=== PATIENT | male | born 1965 | race Caucasian/White ===

== ENCOUNTER 2016-10-25 19:40 | Emergency (ER) | payer OTHER ==
[~2016-10-25] VITALS: Ht 182.9 cm; Wt 81.6 kg
[~2016-10-25 19:40] MED LIST: CITA-48 PO; KETO10 PO; XANA0.5T PO
[2016-10-25 19:50] VITALS: BP 177/91; PULSE 89; RESP 14; TEMP 98.6; O2SAT 99
[2016-10-25] MEDS ORDERED: [UNRECOGNIZED DRUG - OTHER] (20:05)
[2016-10-25] MEDS ORDERED: ALPR.5 PO (20:05)
[2016-10-25] MEDS ORDERED: BP Med (20:05)
[2016-10-25] MEDS ORDERED: CITA40TA4 PO (20:05)
[2016-10-25] MEDS ORDERED: CEPH-459 PO (20:53)
[2016-10-25] MEDS ORDERED: BACT800T5 PO (20:53)
--- NOTE | 2016-10-25 20:54 | PD ---
HPI Chief Complaint: Laceration/Skin Injury Time Seen by Provider: 20:30 Travel History International Travel<30 days: No Contact w/Intl Traveler<30days: No Traveled to known affect area: No History of Present Illness HPI 31-year-old male presents emergency department for evaluation of left lower extremity wound. He reports that he sustained the wound after jumping off a ladder and sustained an abrasion to the left medial aspect of the lower extremity. He reports he noticed that the wound became red and started spreading and lower extremity. He denies fever, chills, nausea, vomiting. He reports only mild pain at the site of the wound. There is no drainage. PFSH Past Medical History Medical History: Denies Significant Hx Anxiety: Yes Depression: Yes (PTSD) Heart Rhythm Problems: No Cardiac Catheterization: No Cardiovascular Problems: No High Cholesterol: No Congestive Heart Failure: No Diabetes: No Diminished Hearing: No Hypertension: No Musculoskeletal: Yes (HX MULTIPLE FX.) Psychiatric: Yes (PTSD) Immunizations Current: Yes Myocardial Infarction: No Influenza Vaccination: Yes ?: Not Past Surgical History Abdominal Aneurysm Repair: Yes (HERNIA X 2) Coronary Artery Bypass Graft: No Other Surgery: Yes (COMBAT WOUNDED VET. MULTIPLE SURGERIES AND FX.) Social History Alcohol Use: No Tobacco Use: Yes (2 cigars/day) Substance Use: No Allergies-Medications (Allergen,Severity, Reaction): Coded Allergies: No Known Allergies (Verified , 03/29/13) Reported Meds & Prescriptions Reported Meds & Active Scripts Active Reported [Seizure Med] [BP Med] Citalopram (Citalopram Hydrobromide) 40 Mg Tab 40 Mg PO DAILY Xanax (Alprazolam) 0.5 Mg Tab 0.5 Mg PO Q6H PRN Physical Exam Narrative GENERAL: Alert well-appearing male SKIN: 8 x 5 cm area of erythema with a central scab. There is no drainage. No lymphangitis. No fluctuance. HEAD: Atraumatic. Normocephalic. EYES: Pupils equal and round. No scleral icterus. No injection or drainage. ENT: No nasal bleeding or discharge. Mucous membranes pink and moist. NECK: Trachea midline. No JVD. CARDIOVASCULAR: Regular rate and rhythm. No murmur appreciated. RESPIRATORY: No accessory muscle use. Clear to auscultation. Breath sounds equal bilaterally. GASTROINTESTINAL: Abdomen soft, non-tender, nondistended. Hepatic and splenic margins not palpable. MUSCULOSKELETAL: No obvious deformities. No clubbing. No cyanosis. No edema. 8 x 5 cm area of cellulitis surrounding a central scab NEUROLOGICAL: Awake and alert. No obvious cranial nerve deficits. Motor grossly within normal limits. Normal speech. PSYCHIATRIC: Appropriate mood and affect; insight and judgment normal. Data Data Last Documented VS Vital Signs Date Time Temp Pulse Resp B/P Pulse Ox O2 Delivery O2 Flow Rate FiO2 10/25/16 19:50 98.6 89 14 177/91 99 MDM Medical Decision Making Medical Screen Exam Complete: Yes Emergency Medical Condition: Yes Medical Record Reviewed: Yes Differential Diagnosis Wound infection, cellulitis, abscess Narrative Course 51-year-old male presents to the emergency department for evaluation of an infected wound. He reports he sustained abrasions to left lower extremity 10 days ago while jumping off a letter. He reports that about 4 days ago he noticed the area became red. He denies fever, chills, nausea, vomiting. On exam the patient has cellulitis surrounding the abrasion. Patient will be put on Bactrim and Keflex. Diagnosis Primary Impression: Cellulitis Qualified Code: L03.90 - Cellulitis, unspecified cellulitis site Referrals: Primary Care Physician Scripts Cephalexin (Keflex)250 Mg Dks220 Mg PO Q6H #40 CAP Ref 0 Prov:Pam Willett 10/25/16 Sulfamethoxazole-Trimethoprim (Bactrim DS)800-160 Mg Tab1 Tab PO BID #20 TAB Prov:Pam Willett 10/25/16 Disposition: 01 DISCHARGE HOME Condition: Stable Pam Willett October 25, 2016 20:53
== END 2016-10-25 21:22 | disposition home or self-care (01) ==
LOC: PHEFT 19:40
DX: L03.116 Cellulitis of left lower limb (principal); F43.10 Post-traumatic stress disorder, unspecified; F41.9 Anxiety disorder, unspecified; F17.290 Nicotine dependence, other tobacco product, uncomplicated; Z79.899 Other long term (current) drug therapy
CPT/HCPCS: 99284

== ENCOUNTER 2017-12-08 15:39 | Observation (INO) ==
[2017-12-08 16:37] LABS: Baso # (Auto) 0.1 th/mm3 (0.0-0.2); Baso % (Auto) 0.7 % (0.0-2.0); Eos # (Auto) 0.1 th/mm3 (0.0-0.4); Eos % (Auto) 1.2 % (0.0-4.0); Hematocrit 42.3 % (39.0-51.0); Hemoglobin 14.5 gm/dL (13.0-17.0); Lymph # (Auto) 1.8 th/mm3 (1.0-4.8); Lymph % (Auto) 20.1 % (9.0-44.0); Mean Corpuscular HGB Conc 34.2 % (32.0-36.0); Mean Corpuscular Hemoglobin 31.1 pg (27.0-34.0); Mean Platelet Volume 9.4 fL (7.0-11.0); Mono # (Auto) 0.8 th/mm3 (0.0-0.9); Neut # (Auto) 6.3 th/mm3 (1.8-7.7); Platelet Count 206 th/mm3 (150-450); Red Blood Count 4.66 mil/mm3 (4.50-5.90); Red Cell Distribution Width 13.7 % (11.6-17.2); White Blood Count 9.1 th/mm3 (4.0-11.0)
[2017-12-08 16:48] LABS: Activated Partial Thrombo Time 24.4 sec (24.3-30.1); Prothrombin Time 10.6 sec (9.8-11.6)
--- NOTE | 2017-12-08 16:52 | ED ---
HPI General Chief Complaint: Chest Pain Stated Complaint: Chest pain Time Seen by Provider: 12/08/17 15:56 Source: patient and EMS Mode of arrival: ambulatory Limitations: no limitations History of Present Illness HPI narrative: Patient is a 52-year-old male presenting to the emergency department for evaluation of chest pain. Symptoms started abruptly prior to arrival. Patient arrived via EMS. MD complaint: chest pain Complete Quality Measures for STEMI Alert Patients STEMI Alert: No Onset (ago): hour(s) Duration: now resolved Onset: during rest Pain location: substernal Severity: moderate Severity scale (1-10): 5 Quality: tightness Pain radiation: none Relieving factors: nitroglycerin Exacerbating factors: nothing Associated symptoms: other (Warm flushed feeling) Treatments prior to arrival chest pain: aspirin and nitroglycerin Related Data Home Medications Medication Instructions Recorded Confirmed No Known Home Medications 12/08/17 12/08/17 Allergies Allergy/AdvReac Type Severity Reaction Status Date / Time No Known Allergies Allergy Verified 12/08/17 15:47 Review of Systems Except as stated in HPI: all other systems reviewed are negative Cardiovascular Reports chest pain, Denies syncope, Reports lightheadedness, Denies radiating jaw, neck or arm pain and Denies palpitations Gastrointestinal Reports system reviewed and no additional complaints, except as docu Musculoskeletal Reports system reviewed and no additional complaints, except as docu Neurologic Reports headache(s) Psychiatric Reports anxiety PMFSH History History Provided By: Patient and Family Member Medical History Medical History Angioedema (Acute) Anxiety (Acute) PTSD (post-traumatic stress disorder) (Acute) Seizures (Acute) Surgical History Surgical History History of hernia repair (Acute) History of sinus surgery (Acute) Social History Social History Substance History: Past History Second Hand Smoke Exposure: No Smoking Status: Smoker, status unknown Tobacco Type: Cigarettes How Often Do You Have a Drink Containing Alcohol: Monthly or less Recent Travel in [place] within the Last 8 Weeks: No Recent Out of Country Travel within the Last 8 Weeks: No Substance Abuse Detail Marijuana: Substance Use Status: Active Substance Abuse Comment: pt states he uses medical marijuana to prevent seizures Immunization History Tetanus Immunization: >5 Years Hx Influenza Vaccine This Season: No Exam Narrative Exam Narrative: GENERAL: Well-developed, well-nourished, alert male. Resting comfortably in no acute distress. SKIN: Focused skin assessment warm/dry. HEAD: Atraumatic. Normocephalic. EYES: Pupils equal and round. No scleral icterus. No injection or drainage. ENT: No nasal bleeding or discharge. Mucous membranes pink and moist. NECK: Trachea midline. No JVD. CARDIOVASCULAR: Regular rate and rhythm. No murmur appreciated. RESPIRATORY: No accessory muscle use. Clear to auscultation. Breath sounds equal bilaterally. GASTROINTESTINAL: Abdomen soft, non-tender, nondistended. Hepatic and splenic margins not palpable. MUSCULOSKELETAL: No obvious deformities. No clubbing. No cyanosis. No edema. NEUROLOGICAL: Awake and alert. No obvious cranial nerve deficits. Motor grossly within normal limits. Normal speech. PSYCHIATRIC: Appropriate mood and affect; insight and judgment normal. Course Initial Documented Vital Signs Temperature 99.8 F H 12/08/17 15:48 Pulse Rate 81 12/08/17 15:48 Respiratory Rate 20 12/08/17 15:48 Blood Pressure 156/81 H 12/08/17 15:48 Pulse Oximetry 98 12/08/17 15:48 Last Documented Vital Signs Temperature 99 F 12/09/17 08:00 Pulse Rate 56 L 12/09/17 08:00 Respiratory Rate 18 12/09/17 08:00 Blood Pressure 119/69 12/09/17 08:00 Pulse Oximetry 96 12/09/17 08:00 Medical Decision Making AYANA Attestation AYANA supervised visit: Yes Attestation: 52-year-old male came to the emergency room with history of chest pain that started all of a sudden substernal and says that from there it sort of went over all over the body. But it scared the patient and his and call 911. Patient received aspirin on route. He has been seen by the nurse practitioner and I am supervising her. Patient is a smoker. He says he had a stress test done in 2006 or 2007 which at that time was within normal limits. Awaiting for blood test result. Patient should go to the chest pain center to be ruled out for ACS at the least if all the test results are within normal limit. I have explained this to the patient and the and they understand. MDM Narrative Medical decision making narrative: Patient presented for evaluation of chest pain. Chest pain was resolved after 2 nitroglycerin given by EMS. Patient's vital signs are stable. Labs imaging ordered and pending. Labs reviewed, no acute findings identified. Troponin is negative 1 set. Potassium is 3.2, oral replacement ordered. Patient was placed in the chest pain center. Chest pain orders placed. Patient and were advised on findings. Lab Data Result diagrams: 12/08/17 16:15 12/08/17 16:15 Lab Results 12/08/17 12/08/17 12/08/17 Range/Units 16:15 16:15 16:15 WBC 9.1 (4.0-11.0) th/mm3 RBC 4.66 (4.50-5.90) mil/mm3 Hgb 14.5 (13.0-17.0) gm/dL Hct 42.3 (39.0-51.0) % MCV 91.0 (80.0-100.0) fL MCH 31.1 (27.0-34.0) pg MCHC 34.2 (32.0-36.0) % RDW 13.7 (11.6-17.2) % Plt Count 206 (150-450) th/mm3 MPV 9.4 (7.0-11.0) fL Neut % (Auto) 69.0 (16.0-70.0) % Lymph % (Auto) 20.1 (9.0-44.0) % [place] % (Auto) 9.0 H (0.0-8.0) % Eos % (Auto) 1.2 (0.0-4.0) % Baso % (Auto) 0.7 (0.0-2.0) % Neut # (Auto) 6.3 (1.8-7.7) th/mm3 Lymph # (Auto) 1.8 (1.0-4.8) th/mm3 [place] # (Auto) 0.8 (0.0-0.9) th/mm3 Eos # (Auto) 0.1 (0.0-0.4) th/mm3 Baso # (Auto) 0.1 (0.0-0.2) th/mm3 WBC Differential . Differential Comment Auto diff final PT 10.6 (9.8-11.6) sec INR 1.0 Ratio APTT 24.4 (24.3-30.1) sec Sodium 142 (136-145) meq/L Potassium 3.2 L (3.5-5.1) meq/L Chloride 108 H (98-107) meq/L Carbon Dioxide 21.6 (21.0-32.0) meq/L Anion Gap 12 (5-15) meq/L BUN 15 (7-18) mg/dL Creatinine 1.29 (0.60-1.30) mg/dL Estimated GFR 58 L (>89) mL/min Random Glucose 153 H (74-106) mg/dL Calcium 8.5 (8.5-10.1) mg/dL Magnesium 1.9 (1.5-2.5) mg/dL Total Bilirubin 0.5 (0.2-1.0) mg/dL AST 9 L (15-37) U/L ALT 18 (12-78) U/L Alkaline Phosphatase 56 (45-117) U/L Total Creatine Kinase 58 (39-308) U/L Troponin I Less than 0.02 L (0.02-0.05) ng/mL Total Protein 7.3 (6.4-8.2) g/dL Albumin 3.8 (3.4-5.0) g/dL 12/08/17 12/08/17 Range/Units 18:49 22:00 WBC (4.0-11.0) th/mm3 RBC (4.50-5.90) mil/mm3 Hgb (13.0-17.0) gm/dL Hct (39.0-51.0) % MCV (80.0-100.0) fL MCH (27.0-34.0) pg MCHC (32.0-36.0) % RDW (11.6-17.2) % Plt Count (150-450) th/mm3 MPV (7.0-11.0) fL Neut % (Auto) (16.0-70.0) % Lymph % (Auto) (9.0-44.0) % [place] % (Auto) (0.0-8.0) % Eos % (Auto) (0.0-4.0) % Baso % (Auto) (0.0-2.0) % Neut # (Auto) (1.8-7.7) th/mm3 Lymph # (Auto) (1.0-4.8) th/mm3 [place] # (Auto) (0.0-0.9) th/mm3 Eos # (Auto) (0.0-0.4) th/mm3 Baso # (Auto) (0.0-0.2) th/mm3 WBC Differential Differential Comment PT (9.8-11.6) sec INR Ratio APTT (24.3-30.1) sec Sodium (136-145) meq/L Potassium (3.5-5.1) meq/L Chloride (98-107) meq/L Carbon Dioxide (21.0-32.0) meq/L Anion Gap (5-15) meq/L BUN (7-18) mg/dL Creatinine (0.60-1.30) mg/dL Estimated GFR (>89) mL/min Random Glucose (74-106) mg/dL Calcium (8.5-10.1) mg/dL Magnesium (1.5-2.5) mg/dL Total Bilirubin (0.2-1.0) mg/dL AST (15-37) U/L ALT (12-78) U/L Alkaline Phosphatase (45-117) U/L Total Creatine Kinase 68 65 (39-308) U/L Troponin I Less than 0.02 L Less than 0.02 L (0.02-0.05) ng/mL Total Protein (6.4-8.2) g/dL Albumin (3.4-5.0) g/dL Imaging Data Radiologist's impression: ITS Impressions Chest X-Ray 12/08/17 16:07 CONCLUSION: No acute cardiopulmonary process. Head CT 12/08/17 16:07 CONCLUSION: 1. No acute intracranial abnormalities seen. 2. Ethmoid sinus disease. Discharge Plan Discharge Disposition Patient Disposition: 30 Still Patient Discharge Condition Condition: Stable Discharge Details Diagnosis: Chest pain Physicians Team ED Provider: Joseph Chapman ED Midlevel Provider: Yumi Montanez Primary Care Provider: [facility] Attending Provider: Rivas Alicea Status ED Status: Left Department Discharge Information Discharge Date/Time: 12/08/17 18:25
--- NOTE | 2017-12-08 16:56 | XR ---
EXAM DATE: 12/08/2017 4:54 PM EDT AGE/SEX: 52 years / Male INDICATIONS: Chest pain. CLINICAL DATA: This is the patient's initial encounter. Patient reports that signs and symptoms have been present for 1 day and indicates a pain score of 5/10. MEDICAL/SURGICAL HISTORY: . Seizures. None. COMPARISON: No prior exams available for comparison. FINDINGS: A single AP view of the chest demonstrates the lungs to be symmetrically aerated without evidence of mass, infiltrate or effusion. The cardiomediastinal contours are unremarkable. Osseous structures a re intact. CONCLUSION: No acute cardiopulmonary process. Electronically signed by: Lan Caballero MD 12/08/2017 4:55 PM EDT
[2017-12-08 16:59] LABS: Alanine Aminotransferase 18 U/L (12-78); Albumin 3.8 g/dL (3.4-5.0); Anion Gap 12 meq/L (5-15); Aspartate Aminotransferase 9 U/L (15-37); Blood Urea Nitrogen 15 mg/dL (7-18); Calcium 8.5 mg/dL (8.5-10.1); Carbon Dioxide 21.6 meq/L (21.0-32.0); Chloride 108 meq/L (98-107); Glomerular Filtration Rate 58 mL/min (>89); Glucose,Random 153 mg/dL (74-106); Magnesium 1.9 mg/dL (1.5-2.5); Potassium 3.2 meq/L (3.5-5.1); Sodium 142 meq/L (136-145)
[2017-12-08 17:03] LABS: Alkaline Phosphatase 56 U/L (45-117); Total Protein 7.3 g/dL (6.4-8.2)
[2017-12-08 17:07] LABS: Creatine Kinase 58 U/L (39-308)
--- NOTE | 2017-12-08 17:24 | CT ---
EXAM DATE: 12/08/2017 5:10 PM EDT AGE/SEX: 52 years / Male INDICATIONS: Chest pain and headache. CLINICAL DATA: This is the patient's initial encounter. Patient reports that signs and symptoms have been present for 1 day and indicates a pain score of 3/10. MEDICAL/SURGICAL HISTORY: . Seizures, Post traumatic stress disorder. . RADIATION DOSE: 37.45 CTDI (mGy) COMPARISON: No prior exams available for comparison. TECHNIQUE: CT of the head without contrast. Using automated exposure control and adjustment of the mA and/or kV according to patient size, radiation dose was kept as low as reasonably achievable to ob tain optimal diagnostic quality images. DICOM format image data is available electronically for revi ew and comparison. FINDINGS: Cerebrum: The ventricles are normal for age. No evidence of midline shift, mass lesion, hemorrhage or acute infarction. No extraaxial fluid collections are seen. Posterior Fossa: The cerebellum and brainstem are intact. The 4th ventricle is midline. The cerebe llopontine angle is unremarkable. Extracranial: The visualized portion of the orbits is intact. There is ethmoid sinus disease. Skull: The calvaria is intact. No evidence of skull fracture. CONCLUSION: 1. No acute intracranial abnormalities seen. 2. Ethmoid sinus disease. Electronically signed by: Lan Caballero MD 12/08/2017 5:23 PM EDT
[2017-12-08] MEDS ORDERED: Morphine Inj 4 MG/ML Vial IV.PUSH PRN (17:33)
[2017-12-08] MEDS ORDERED: Temazepam 15 MG Capsule PO PRN (17:33)
[2017-12-08] MEDS ORDERED: Acetaminophen 500 MG Tablet PO PRN (17:33)
[2017-12-08 19:43] LABS: Creatine Kinase 68 U/L (39-308)
[2017-12-08 22:49] LABS: Creatine Kinase 65 U/L (39-308)
--- NOTE | 2017-12-09 09:19 | P.HPCA ---
History of Present Illness Primary Care Physician: [facility] Chief Complaint: Chest pain History of Present Illness: This is a 52-year-old male with stated history of seizure disorder that presents to ED via EMS with complaint of chest discomfort patient states he awoke yesterday with a left center chest discomfort that felt like a flushing sensation over the entire upper body. Lasted about an hour. He was short of breath and nauseous denies diaphoresis. Found nothing to worsen or improve the symptoms when they are present. Denies ever having a cardiac catheterization. Cannot recall ever having a stress test however upon reviewing records he had a nonischemic Jamie protocol ETT in 2005. Patient states that he has 14-15 seizures a month and this is evaluated at [facility] 1-2 years ago. States he was there for a week and had several seizures but he states that he was told that he was not having seizures and his medications were changed which he states did not help his symptoms and then states that those medications were then discontinued by the [place]. When asked when his last seizure was patient states I might have had one yesterday but he was not sure. Denies having any fecal urinary incontinence or tongue biting. Denies injury. Patient states he does not smoke, drink alcohol, or use illicit drugs. He thinks his father had CAD but is only beginning to research it. He has had sinus surgery and hernia repair. - Diagnosis (1) Chest pain Inpatient Certification: I certify that the inpatient services were ordered in accordance with Medicare regulations governing the order. This includes certification that hospital inpatient services are reasonable and necessary and in the case of services not specified as inpatient-only under 42 CFR 419.22(n), that they are appropriately provided as inpatient services in accordance to with the 2-midnight benchmark under 43 CFR 412.3(e) Review of Systems General: Patient denies fevers, chills, and recent travel. HEENT: Patient denies headache, sore throat, difficulty swallowing. Cardiovascular: Has the chest discomfort as mentioned above. Denies sensation of heart beating rapidly or irregularly. No syncope. Denies diaphoresis. Respiratory: He was short of breath. Denies inspirational chest discomfort. Denies coughing wheezing or hemoptysis. GI: He was nauseous. Patient denies vomiting, diarrhea, abdominal pain, bloody stools. Musculoskeletal: Patient denies joint pain or edema. Denies calf pain or edema. Neurovascular: Patient denies numbness, tingling, weakness in extremities. Denies headache. Endocrine: Denies polyuria and polydipsia. Hematologic: Denies easy bruising. Skin: Denies rash or itching. PMFSH - History History Provided By: Patient - Medical History Medical History: Medical History (Last Reviewed 12/08/17 @ 16:53 by GELA Givens) Angioedema Anxiety PTSD (post-traumatic stress disorder) Seizures - Surgical History Surgical History: Surgical History (Last Reviewed 12/08/17 @ 16:53 by GELA Givens) History of hernia repair History of sinus surgery - Tobacco History Second Hand Smoke Exposure: No Tobacco Use In Past 30 Days: No Smoking Status: Smoker, status unknown Tobacco Type: Cigarettes - Alcohol History How Often Do You Have a Drink Containing Alcohol: Monthly or less - Substance Use History Substance History: Past History - Substance Use Type Marijuana Status: Active Comment: pt states he uses medical marijuana to prevent seizures - Travel History Recent Travel in the [place] Within the Last 8 Weeks: No Recent Travel Out of the Country Within the Last 8 Weeks: No - Immunization History Tetanus Immunization: >5 Years Hx Influenza Vaccine This Season: No Medications and Allergies Active Medications: Active Medications Acetaminophen (Tylenol) 500 mg PO Q4H PRN PRN Reason: HEADACHE Morphine Sulfate (Morphine Inj) 2 mg IV.PUSH Q4H PRN PRN Reason: PAIN SCALE 8 TO 10 Nitroglycerin (Nitro-Bid 2% Oint) 1 inch TOPICAL Q6HR [facility] Last Admin: 12/09/17 09:08 Dose: Not Given Sodium Chloride (Ns Flush) 2 ml IV.FLUSH UNSCH PRN PRN Reason: FLUSH AFTER USING IV ACCESS Sodium Chloride (Ns Flush) 2 ml IV.FLUSH BID [facility] Last Admin: 12/09/17 05:04 Dose: 2 ml Sodium Chloride (Ns Flush) 2 ml IV.FLUSH PRN PRN PRN Reason: FLUSH AFTER USING IV ACCESS Temazepam (Restoril) 15 mg PO HS PRN PRN Reason: INSOMNIA Allergies Allergy/AdvReac Type Severity Reaction Status Date / Time No Known Allergies Allergy Verified 12/08/17 15:47 Home Medications Medication Instructions Recorded Confirmed Type No Known Home Medications 12/08/17 12/08/17 History Exam Vital signs: Vital Signs 12/08/17 15:48 07/12/18 16:23 12/08/17 16:25 Temperature 99.8 F H 99.8 F H Pulse Rate 81 75 Respiratory Rate 20 20 Blood Pressure 156/81 H 176/81 H Pulse Oximetry 98 96 96 12/08/17 16:26 12/08/17 17:48 12/08/17 18:25 Temperature 98.1 F 97.8 F Pulse Rate 76 64 71 Respiratory Rate 16 Blood Pressure 129/70 129/76 Pulse Oximetry 96 12/08/17 20:00 12/08/17 20:49 12/08/17 21:19 Temperature 98.5 F Pulse Rate 75 67 Respiratory Rate 17 Blood Pressure 130/71 Pulse Oximetry 96 98 12/09/17 00:00 12/09/17 03:39 12/09/17 08:00 Temperature 97.7 F 98 F 99 F Pulse Rate 58 L 63 56 L Respiratory Rate 20 17 18 Blood Pressure 99/60 L 105/70 119/69 Pulse Oximetry 99 95 96 Intake & Output 12/08/17 12/09/17 12/09/17 18:59 06:59 18:59 Intake Total 800 / 800 Balance 800 / 800 Weight 85.275 kg Intake: Oral 800 / 800 Other: # Voids 2 Date of Last Bowel Movement 12/08/17 Narrative: GENERAL: This is a well-nourished, well-developed patient, in no apparent distress. Patient speaks in clear complete sentences. Patient is pleasant. HEENT: Head is atraumatic and normocephalic. Neck is supple without lymphadenopathy and trachea is midline. No JVD or carotid bruits. CARDIOVASCULAR: Regular rate and rhythm without murmurs, gallops, or rubs. RESPIRATORY: Clear to auscultation. Breath sounds equal bilaterally. No wheezes , rales, or rhonchi. Chest wall is nontender. No use of accessory muscles. GASTROINTESTINAL: Abdomen is nontender, nondistended. Abdomen soft. No obvious pulsatile mass or bruit. No CVA tenderness. Strong femoral pulses bilaterally. Normal bowel sounds in all quadrants. MUSCULOSKELETAL: Patient is moving upper and lower extremities freely. No calf tenderness or edema, no Homans sign. Strong pulses in upper and lower extremities. NEUROLOGICAL: Patient is alert and oriented. Cranial nerves 2-12 are grossly intact. No focal deficits and speech is clear. SKIN: No rash and turgor is normal. Results 12/08/17 16:15 12/08/17 16:15 Cardiac Enzymes 12/08/17 12/08/17 12/08/17 Range/Units 16:15 18:49 22:00 AST 9 L (15-37) U/L Troponin I Less than 0.02 L Less than 0.02 L Less than 0.02 L (0.02-0.05) ng/mL Coagulation 12/08/17 Range/Units 16:15 PT 10.6 (9.8-11.6) sec APTT 24.4 (24.3-30.1) sec CBC 12/08/17 Range/Units 16:15 WBC 9.1 (4.0-11.0) th/mm3 RBC 4.66 (4.50-5.90) mil/mm3 Hgb 14.5 (13.0-17.0) gm/dL Hct 42.3 (39.0-51.0) % Plt Count 206 (150-450) th/mm3 Neut # (Auto) 6.3 (1.8-7.7) th/mm3 Lymph # (Auto) 1.8 (1.0-4.8) th/mm3 [place] # (Auto) 0.8 (0.0-0.9) th/mm3 Eos # (Auto) 0.1 (0.0-0.4) th/mm3 Baso # (Auto) 0.1 (0.0-0.2) th/mm3 Comprehensive Metabolic Panel 12/08/17 Range/Units 16:15 Sodium 142 (136-145) meq/L Potassium 3.2 L (3.5-5.1) meq/L Chloride 108 H (98-107) meq/L Carbon Dioxide 21.6 (21.0-32.0) meq/L BUN 15 (7-18) mg/dL Creatinine 1.29 (0.60-1.30) mg/dL Calcium 8.5 (8.5-10.1) mg/dL AST 9 L (15-37) U/L ALT 18 (12-78) U/L Alkaline Phosphatase 56 (45-117) U/L Total Protein 7.3 (6.4-8.2) g/dL Albumin 3.8 (3.4-5.0) g/dL Intake and Output 12/08/17 12/09/17 12/09/17 22:59 06:59 14:59 Intake Total 800 / 800 Balance 800 / 800 Intake: Oral 800 / 800 Other: # Voids 2 Date of Last Bowel Movement 12/08/17 Weight 85.275 kg EKG interpretations - EKG EKG shows: sinus rhythm (EKGs are sinus rhythm without significant ST segment depressions or elevations.) Caprini VTE Risk Assessment Caprini VTE Risk Assessment: No/Low Risk (score <= 1) Caprini Risk Assessment Model: Point Value = 1 Point Value = 2 Point Value = 3 Point Value = 5 Age 41-60 Minor surgery BMI > 25 kg/m2 Swollen legs Varicose veins or History of unexplained or recurrent spontaneous Oral contraceptives or hormone replacement Sepsis (< 1 month) Serious lung disease, including pneumonia (< 1 month) Abnormal pulmonary function Acute myocardial infarction Congestive heart failure (< 1 month) History of inflammatory bowel disease Medical patient at bed rest Age 61-74 Arthroscopic surgery Major open surgery (> 45 min) Laparoscopic surgery (> 45 min) Malignancy Confined to bed (> 72 hours) Immobilizing plaster cast Central venous access Age >= 75 History of VTE Family history of VTE Factor V Leiden Prothrombin [id number] Lupus anticoagulant Anticardiolipin antibodies Elevated serum homocysteine Heparin-induced thrombocytopenia Other congenital or acquired thrombophilia Stroke (< 1 month) Elective arthroplasty Hip, pelvis, or leg fracture Acute spinal cord injury (< 1 month) Prophylaxis Regimen: Total Risk Factor Score Risk Level Prophylaxis Regimen 0-1 Low Early ambulation 2 Moderate Order ONE of the following: *Sequential Compression Device (SCD) *Heparin 5000 units SQ BID 3-4 Higher Order ONE of the following medications: *Heparin 5000 units SQ TID *Enoxaparin/Lovenox 40 mg SQ daily (WT < 150 kg, CrCl > 30 mL/min) *Enoxaparin/Lovenox 30 mg SQ daily (WT < 150 kg, CrCl > 10-29 mL/min) *Enoxaparin/Lovenox 30 mg SQ BID (WT < 150 kg, CrCl > 30 mL/min) AND/OR *Sequential Compression Device (SCD) 5 or more Highest Order ONE of the following medications: *Heparin 5000 units SQ TID (Preferred with Epidurals) *Enoxaparin/Lovenox 40 mg SQ daily (WT < 150 kg, CrCl > 30 mL/min) *Enoxaparin/Lovenox 30 mg SQ daily (WT < 150 kg, CrCl > 10-29 mL/min) *Enoxaparin/Lovenox 30 mg SQ BID (WT < 150 kg, CrCl > 30 mL/min) AND *Sequential Compression Device (SCD) Assessment and Plan - Assessment (1) Chest pain Code(s): R07.9 - Chest pain, unspecified Status: Acute - Plan * Chest pain: Patient has had serial cardiac enzymes and EKGs for ruling out purposes. He has been seen by Dr. Rivas Alicea of cardiology in the chest pain center and will undergo a Lexiscan. Patient will be discharged home if the stress test is nonischemic with instructions to follow-up with PCP. Return to ED for interval issues. Patient is stable at this time. He is agreeable to this plan. H&P: Quality - VTE Deep Vein Thrombosis/Pulmonary Embolism Present on Admission: No (1) Chest pain Qualifiers: Chest pain type: unspecified Qualified Code(s): R07.9 - Chest pain, unspecified
[2017-12-09] MEDS ORDERED: Regadenoson Inj 0.4 MG/5 ML Syringe IV.PUSH ONE (13:10)
--- NOTE | 2017-12-09 14:41 | NM ---
EXAM DATE: 12/09/2017 2:25 PM EDT AGE/SEX: 52 years / Male INDICATIONS:Angina. . Left chest pain. CLINICAL DATA: This is the patient's initial encounter. Patient reports that signs and symptoms have been present for 1 day and indicates a pain score of 1/10. MEDICAL/SURGICAL HISTORY: . Seizures. Inguinal hernia repair. COMPARISON: No prior exams available for comparison. DOSE: 8.8 mCi Tc 99m Myoview at rest 26.3 mCi [id number] at stress 0.4 mg Lexiscan STRESS SYMPTOMS: Dyspnea. EJECTION FRACTION: 67 % TECHNIQUE: The patient underwent pharmacologic stress with infusion of prescribed dose. Continuous ECG tracing was monitored during stress. Gated SPECT imaging was performed after stress and conventi onal SPECT imaging was performed at rest. The examination was performed on a SPECT/CT scanner, both attenuation and non-corrected datasets were reviewed. FINDINGS: Distribution: The maximum perfused segment at stress is in the inferior wall. Perfusion Study: The pattern of perfusion at stress is within normal limits. Gated Study: There are intact wall motion and wall thickening without hypokinetic or dyskinetic segm ents. The ejection fraction is calculated at 67%. RISK CATEGORY: Low (<1% Annual Motality Rate) CONCLUSION: Unremarkable myocardial perfusion scan. Electronically signed by: Rivas Pool MD 12/09/2017 2:39 PM EDT
--- NOTE | 2017-12-13 16:48 | ECG ---
Date Performed: 12/08/2017 Time Performed: 16:24:50 PTAGE: 52 years EKG: Sinus rhythm WITH SINUS ARRHYTHMIA POSSIBLE RIGHT VENTRICULAR CONDUCTION DELAY BORDERLINE ECG NO PREVIOUS TRACING DOCTOR: Rivas Alicea Interpretating Date/Time 12/13/2017 16:46:13
--- NOTE | 2018-02-28 13:24 | TR ---
Date Performed: 12/09/2017 Time Performed: 13:10:42 DOCTOR: Rivas Alicea DRUG LIST: CLINICAL HISTORY: REASON FOR TEST: REASON FOR ENDING: OBSERVATION: CONCLUSION: COMMENTS: Lexiscan stress test was performed under standard four minute protocol. Radionuclide was injected one minute prior to ending the test. No electrocardiographic abormalities were present t o suggest ischemia. Nuclear imaging and interpretation are pending.
== END 2017-12-09 17:11 | disposition home or self-care (01) ==
LOC: NEDA 15:39 → NEPD 15:39 → NEPFCDU 15:39
PROVIDERS: ADMIT Internal Medicine Cardiovascular Disease; ATTEND Internal Medicine Cardiovascular Disease